=== PATIENT | male | born 1965 | race Two or more races ===

== ENCOUNTER 2022-04-04 20:45 | Emergency (ER) | payer OTHER ==
[~2022-04-04] VITALS: Ht 170.2 cm; Wt 74.4 kg
[2022-04-04] MEDS ORDERED: ZETIA10 MG (21:00)
[2022-04-04] MEDS ORDERED: COZAAR25 MG (21:00)
[2022-04-04] MEDS ORDERED: LIPITOR80 MG (21:00)
[2022-04-04] MEDS ORDERED: RESTORIL15 M1 (21:00)
== END 2022-04-05 00:11 | disposition home or self-care (01) ==
LOC: ER 20:45
DX: I10 Essential (primary) hypertension (principal)